=== PATIENT | female | born 1955 | race Caucasian/White ===

== ENCOUNTER 2019-04-04 06:55 | Outpatient (CLI) | payer BC, SELFPAY ==
--- NOTE | 2019-04-04 07:56 | ECG_ITS ---
NAME OF STUDY: LEXISCAN SESTAMIBI STRESS TEST INDICATION: Chest Pain, NOTE: Please note that this is the electrocardiogram portion of the Lexiscan/Sestamibi stress test. The perfusion scan will be documented separately. DATA: Baseline heart rate was 76 beats per minute. Baseline blood pressure was 145/76 millimeters of mercury. Target heart rate was 155. Maximum heart rate achieved was 116. which was 74% of the predicted target heart rate. Maximum blood pressure was 180/82 millimeters of mercury. The reason for ending the test was completion of the protocol. The patient did not experience any symptoms. ELECTROCARDIOGRAM: BASELINE: Sinus rhythm. Normal axis. Otherwise, no ST-T changes suggestive of ischemia noted. No arrhythmia noted. EXERCISE: After Lexiscan injection, no ST-T changes suggestive of ischemic noted. No arrhythmia noted. CONCLUSION: Please note due to baseline abnormality of the EKG specificity and sensitivity of the EKG portion of LexiScan MIBI stress test will be low 1. EKG not suggestive of ischemia 2. Lexiscan injection unremarkable. 3. Perfusion scan will be documented separately. Electronically Signed On 04-04-2019 11:37:21 PROJECT COORDINATOR by Althea Staples M.D. [email or web address]
[2019-04-04 07:57] VITALS: BMI 37.5
--- NOTE | 2019-04-04 07:57 | NMCV_ITS ---
NM sher perf SPECT r/s* [id number] Meghan Renteria Age: 64 Gender: F : 1955 Exam Date: 04/04/2019 07:57 Ordering Phys: JEFF JAMES Technologist: RANDOLPH Nichols Exam Location: [facility] Indications: Chest pain STRESS TEST Please see separate stress test report in [facility] for full findings IMAGE PROTOCOL Rest/Stress 1 Lexiscan Day Radiopharmaceutical Dose (mCi) Administration Site Administered by Rest: Tc-99m 10.8 IV RANDOLPH Nichols Sestamibi Stress:Tc-99m 32.6 IV RANDOLPH Nichols Sestamibi Rest: 04-Apr-2019 60 Discovery 630 Stress: 04-Apr-2019 45 Discovery 630 0.4mg Lexiscan. Images obtained in supine and prone position. SPECT RESULTS Technical Quality: Good Raw Data Analysis: Breast attenuation Image Corrections: No attenuation or motion correction applied Summed Stress Score: 0 Summed Rest Score: 2 Summed Difference Score: 0 PERFUSION FINDINGS SPECT images demonstrate homogeneous tracer distribution throughout the myocardium. FUNCTIONAL RESULTS (calculated via Gated SPECT) Stress Image LV EF (%): 90 Stress EDV (mL):48 TID: 0.78 Stress ESV (mL):5 Rest Image LV EF (%): 90 FUNCTIONAL FINDINGS: Left ventricular systolic function is hyperdynamic. IMPRESSIONS Myocardial perfusion imaging is normal and low probability for obstructive coronary artery disease. EKG segment will be documented separately. Althea Staples MD (Electronically Signed) Final Date: 04 April 2019 16:49 S
[2019-04-04] MEDS: regadenoson 0.4 Mg/5 ml Syringe IVP (09:23)
[2019-04-04 09:24] VITALS: BP 170/74; PULSE 99
== END 2019-04-04 06:56 | disposition home or self-care (01) ==
LOC: CDL 06:58
PROVIDERS: Family Provider Nurse Practitioner Family; PCP Nurse Practitioner Family; Visit Provider Nurse Practitioner Family
DX: R06.09 Other forms of dyspnea (principal); R07.89 Other chest pain; Z82.49 Family history of ischemic heart disease and other diseases of the circulatory system
CPT/HCPCS: 78452; 93017; A9500; J2785

== ENCOUNTER 2020-06-22 11:04 | Outpatient (CLI) | payer BC, SELFPAY ==
--- NOTE | 2020-06-22 11:14 | MM_ITS ---
WS: [id number] SCREENING DIGITAL MAMMOGRAM WITH CAD HISTORY: SCREENING COMPARISON: 08/30/2007 Bilateral CC and MLO views submitted. Computer aided detection analyzed. Breast composition: There are scattered areas of fibroglandular density. No suspicious masses, microc alcifications or architectural distortion. Benign calcifications in each breast MM/[place] [id number] IMPRESSION: BI-RADS: 2-Benign FOLLOW UP: 1 Year Follow-up
== END 2020-06-22 11:05 | disposition home or self-care (01) ==
LOC: RADSHAW 11:08
PROVIDERS: PCP Nurse Practitioner Family; Visit Provider Nurse Practitioner Family
DX: Z12.31 Encounter for screening mammogram for malignant neoplasm of breast (principal)
CPT/HCPCS: 77067

== ENCOUNTER 2020-11-11 11:20 | Outpatient (CLI) | payer BC, SELFPAY ==
--- NOTE | 2020-11-11 11:25 | XR_ITS ---
WS: [id number] HIP WITH PELVIS RIGHT TECHNIQUE: 3 views of the right hip with pelvis CLINICAL INFORMATION: HIP PAIN,RIGHT COMPARISON: None. FINDINGS: Mild osteoarthritis right hip. No acute fractures. Normal right pubic rami. XR/XR hip RT 2-3V wo/w pel* [id number] IMPRESSION: Mild degenerative arthritis right hip. Tonnis classification: grade 1: sclerosis of femoral head and acetabulum or sli ght joint space narrowing or slight lippig at joint margins
== END 2020-11-11 11:21 | disposition home or self-care (01) ==
PROVIDERS: PCP Nurse Practitioner Family; Visit Provider Nurse Practitioner Family
DX: M16.11 Unilateral primary osteoarthritis, right hip (principal)
CPT/HCPCS: 73502

== ENCOUNTER 2021-03-18 19:09 | Emergency (ER) | payer MEDICARE, SELFPAY ==
[2021-03-18 19:21] VITALS: BP 153/74; PULSE 99; RESP 16; TEMP 36.4; O2SAT 97; BMI 37.5
--- NOTE | 2021-03-18 19:27 | XRR_ITS ---
PROCEDURE INFORMATION: Exam: XR Right Knee Exam date and time: 03/18/2021 7:27 PM Age: 66 years old Clinical indication: Pain; Knee; Right; Additional info: Injury TECHNIQUE: Imaging protocol: XR Right knee. Views: 3 views. Total images: 3 COMPARISON: No relevant prior studies available. FINDINGS: Bones/joints: No visible fracture, subluxation, or dislocation. No radiographically visible joint effusion. Soft tissues: Unremarkable. XR/XR knee RT 3V* [id number] IMPRESSION: Nonacute.
--- NOTE | 2021-03-18 21:58 | W.ED.FALL ---
HPI - Fall General: Chief Complaint: Fall Stated Complaint: fall Time Seen by Provider: 03/18/21 21:54 History of Present Illness: HPI Narrative: 66-year-old female reports that she was going into the bathroom and her knee locked up on her causing her to start to fall in which she caught her self and then sat down on the toilet. Since then patient has had pain and discomfort to her right knee. Patient reports difficulty bearing weight to the knee. She is able to move the knee while sitting is just when she bears weight. Patient appears nontoxic. Patient appears in no pain at rest. Review of Systems Musc: Reports: joint pain (Right knee injury) [facility], [facility] ED PFSH: Social History (Updated 04/04/19 @ 07:55 by Nicole Almanza RN) Smoking and tobacco status: current every day smoker Physical Exam Const: NUTRITIONAL APPEARANCE: obese HENMT: COMMON NORMALS: atraumatic HEAD & SCALP: atraumatic Neck/C-Spine: COMMON NORMALS: full ROM Resp: COMMON NORMALS: normal respiratory effort and clear to auscultation bilaterally AUSCULTATION: clear to auscultation bilaterally Cardio: COMMON NORMALS: regular rate and regular rhythm RATE: regular rate RHYTHM: regular rhythm Extremity: RIGHT LOWER EXTREMITY: Yes knee joint Right knee: Yes inspection (Normal), Yes palpation (Joint line tenderness) and Yes ROM Neuro: GAIT: Yes Antalgic gait present Psych: COMMON NORMALS: cooperative Skin: COMMON NORMALS: no rashes or lesions noted GENERAL SKIN EXAM: no rashes or lesions noted Course Vital Signs: Vital signs: Vital Signs Temperature 97.6 F 03/18/21 19:21 Pulse Rate 99 03/18/21 19:21 Respiratory Rate 16 03/18/21 19:21 Blood Pressure 153/74 03/18/21 19:21 Pulse Oximetry 97 03/18/21 19:21 MDM - Fall MDM Narrative: Medical decision making narrative: 66-year-old female comes in today with complaints of right knee pain. Patient states that she had injury to her knee years ago when she fell off a ladder. Patient usually does not have problems with her knee. On exam there is joint line tenderness to the knee, no redness or heat, no significant swelling. Differential diagnosis includes meniscal injury, sprain, osteoarthritis. X-ray shows some degenerative joint disease but no acute fractures. Reviewed exam with patient recommended treatment for knee injury/sprain with limiting weight and using acetaminophen and ibuprofen for pain. Patient was given a total of 6 tablets of hydrocodone 06/29/2024 for breakthrough severe pain. Recommend follow-up with primary care for further instruction or referral as needed. Patient reported understanding and agreed to plan. Discharge Plan Discharge Patient Disposition: Home Clinical Impression: Knee injury Qualifiers: Encounter type: initial encounter Laterality: right Qualified Code(s): S89.91XA - Unspecified injury of right lower leg, initial encounter Degenerative joint disease of knee, right Qualifiers: Osteoarthritis type: unspecified Qualified Code(s): M17.11 - Unilateral primary osteoarthritis, right knee Condition: Stable Prescriptions: New hydrocodone-acetaminophen 5-325 mg tablet 1 tab PO Q8H PRN (Reason: pain (scale score 7-10)) Qty: 6 RF: 0 Discharge Orders: Discharge ED (Routine); Ordered 03/18/21 Ordered By: Prashant Romero Referrals: Marco Antonio Holder NP [Primary Care Provider] - Discharge Diet: Usual diet Discharge Activity: Increase activity as tolerated Patient Instructions: Knee Pain (ED), Opioid Safety Activity Restrictions/Additional Instructions: Use acetaminophen or ibuprofen to help control pain. Use a walker to get around at home. Follow-up with primary care for further instruction. Return to ER for new concerns. Use hydrocodone for breakthrough pain. Coding Level of Care Code ED Biomedical Equipment Tech for Emelina Alaniz
== END 2021-03-18 22:18 | disposition home or self-care (01) ==
PROVIDERS: Emergency Provider Nurse Practitioner Family; PCP Nurse Practitioner Family
DX: M17.11 Unilateral primary osteoarthritis, right knee (principal); S89.91XA Unspecified injury of right lower leg, initial encounter; F17.210 Nicotine dependence, cigarettes, uncomplicated; W18.40XA Slipping, tripping and stumbling without falling, unspecified, initial encounter
CPT/HCPCS: 73562; 99282

== ENCOUNTER 2021-07-27 10:36 | Outpatient (CLI) | payer MEDICARE, SELFPAY ==
--- NOTE | 2021-07-27 11:00 | MM_ITS ---
WS: [id number] Bilateral screening 3D tomosynthesis digital mammogram, 07/27/2021 Clinical Data: SCREENING Comparison: 06/22/2020, 08/30/2007, 08/03/2006. Findings: The breast parenchymal pattern shows fibroglandular tissue No spiculated masses or clustered calcific ations are seen. There are no secondary signs of carcinoma. MM/[place] [id number] Impression: 1. Negative bilateral mammogram unchanged. 2. Recommend annual screening mammograms. BIRADS: 1-Negative FOLLOW UP: 1 Year Follow-up The CAD quality checker was used.
== END 2021-07-27 10:37 | disposition home or self-care (01) ==
LOC: RAD 10:41
PROVIDERS: PCP Nurse Practitioner Family; Visit Provider Nurse Practitioner Family
DX: Z12.31 Encounter for screening mammogram for malignant neoplasm of breast (principal)
CPT/HCPCS: 77063; 77067

== ENCOUNTER 2021-08-09 09:55 | Outpatient (CLI) | payer MEDICARE, SELFPAY ==
--- NOTE | 2021-08-09 10:07 | XRR_ITS ---
PROCEDURE INFORMATION: Exam: XR Chest Exam date and time: 08/09/2021 10:15 AM Age: 66 years old Clinical indication: Cough; Prior surgery; Surgery type: Gb, hysto; Additional info: Nocturnal cough x 2 months TECHNIQUE: Imaging protocol: XR of the chest. Views: 2 views. Total images: 3 COMPARISON: CR Chest 2 views* [id number] 01/12/2018 1:05 AM FINDINGS: Lungs: Click lung granuloma Pleural spaces: Unremarkable. No pleural effusion. No pneumothorax. Heart/Mediastinum: Unremarkable. No cardiomegaly. Vasculature: Atherosclerosis is evident. Bones/joints: Unremarkable. Organs: Surgical clips are present in the right upper quadrant which are suggestive of prior cholecystectomy. XR/XR chest 2V* [id number] IMPRESSION: No acute cardiopulmonary process.
== END 2021-08-09 09:56 | disposition home or self-care (01) ==
LOC: RAD 09:57
PROVIDERS: PCP Nurse Practitioner Family; Visit Provider Nurse Practitioner Family
DX: R05.8 Other specified cough (principal)
CPT/HCPCS: 71046

== ENCOUNTER 2022-08-23 14:44 | Outpatient (CLI) | payer MEDICARE, SELFPAY ==
--- NOTE | 2022-08-23 | XR_ITS ---
WS: [id number] SCREENING DEXA SCAN Cureatr CLINICAL INFORMATION: OSTEOPOROSIS SCREENING COMPARISON: None. FINDINGS: LEFT forearm bone mineral density measures 0.845. This corresponds to a T score score of -0.4 and Z s core of 1.3. Left femoral neck bone mineral density measures 1.062 g/cm2. This corresponds to a T score of 0.4 and Z score of 1.2. Right femoral neck bone mineral density measures 1.085 g/cm2. This corresponds to a T score 0.6of and Z score of 1.4. Mean femoral neck bone mineral density measures 1.073 g/cm2. This corresponds to a T score of 0.5 and Z score of 1.3. XR/XR DEXA axial skeleton* [id number] IMPRESSION: Normal bone mineralization. Patient's FRAX calculated 10 year probability for major osteoporotic fracture i s 7.2 % and osteoporotic hip fracture is 0.9%.
--- NOTE | 2022-08-23 14:53 | MM_ITS ---
WS: [id number] VIEWS: MLO and CC views both breasts. 3D digital tomosynthesis is also included in this exam. Comparison made with prior exam of 08/03/2006, 08/30/2007, 06/22/2020, 07/27/2021.. Findings: There was no sign of mass, architectural distortion or suspicious calcification in either breast. Th ere are areas of scattered fibroglandular density MM/[place] [id number] Impression: BI-RADS: 2-Benign finding. FOLLOW-UP: 1 Year Follow-up This mammogram was also analyzed by the Computer Aided Detection System R2 Imag e Strong Nitric Operator.
== END 2022-08-23 14:45 | disposition home or self-care (01) ==
PROVIDERS: PCP Nurse Practitioner Family; Visit Provider Family Medicine
DX: Z78.0 Asymptomatic menopausal state (principal)
CPT/HCPCS: 77063; 77067; 77080

== ENCOUNTER 2023-01-07 10:19 | Emergency (ER) | payer MEDICARE, SELFPAY ==
[2023-01-07 10:21] VITALS: BP 171/110; PULSE 86; RESP 16; TEMP 36.7; O2SAT 95; BMI 36.9
--- NOTE | 2023-01-07 11:19 | CTR_ITS ---
PROCEDURE INFORMATION: Exam: CT Cervical Spine Without Contrast Exam date and time: 01/07/2023 12:06 PM Age: 67 years old Clinical indication: Injury or trauma; Fall; Blunt trauma; Additional info: Fall/injury TECHNIQUE: Imaging protocol: Computed tomography of the cervical spine without contrast. Axial, coronal and sagittal reformatted images were created and reviewed. Radiation optimization: All CT scans at this facility use at least one of these dose optimization techniques: automated exposure control; mA and/or kV adjustment per patient size (includes targeted exams where dose is matched to clinical indication); or iterative reconstruction. REPORTING DATA: Count of CT and Cardiac NM exams in prior 12 months: This patient has received 0 known CTs and 0 known cardiac nuclear medicine studies in the 12 months prior to the current study. COMPARISON: CT cervical spin wo con* [id number] 01/12/2018 1:18 AM RADIATION DOSE METRICS: Total DLP (mGy-cm): 597 FINDINGS: Bones/joints: Osteopenia. Straightening of the normal cervical lordosis. No CT evidence of acute fracture, dislocation or subluxation. Minimal anterolisthesis of C3 on C4 and retrolisthesis of C4 on C5. Alignment otherwise anatomic. Vertebral body heights maintained. Multilevel degenerative changes, characterized by disc space narrowing, osteophytosis and uncovertebral and facet joint hypertrophy. Multilevel spinal canal and neural foraminal stenosis. Lungs: Grossly unremarkable. Soft tissues: Grossly unremarkable. CT/CT cervical spin wo con* [id number]: 1[address] No CT evidence of acute cervical spine traumatic injury. 2. Additional findings, as above.
--- NOTE | 2023-01-07 11:19 | CTR_ITS ---
PROCEDURE INFORMATION: Exam: CT Head Without Contrast Exam date and time: 01/07/2023 12:06 PM Age: 67 years old Clinical indication: Injury or trauma; Fall; Blunt trauma (contusions or hematomas); Additional info: Fall/injury TECHNIQUE: Imaging protocol: Computed tomography of the head without contrast. Axial, coronal and sagittal reformatted images were created and reviewed. Radiation optimization: All CT scans at this facility use at least one of these dose optimization techniques: automated exposure control; mA and/or kV adjustment per patient size (includes targeted exams where dose is matched to clinical indication); or iterative reconstruction. REPORTING DATA: Count of CT and Cardiac NM exams in prior 12 months: This patient has received 0 known CTs and 0 known cardiac nuclear medicine studies in the 12 months prior to the current study. COMPARISON: CT cervical spin wo con* [id number] 01/12/2018 1:18 AM RADIATION DOSE METRICS: Total DLP (mGy-cm): 933.3 FINDINGS: Brain: Patchy areas of hypoattenuation in the periventricular and subcortical white matter, consistent with chronic small vessel ischemic disease. No CT evidence of acute intracranial hemorrhage or acute territorial infarction. No significant mass effect or midline shift. Basal cisterns patent. Cerebral ventricles: Prominence of the cortical sulci, cisterns and ventricular system, consistent with cerebral and cerebellar volume loss. Paranasal sinuses: Moderate polypoid left maxillary sinus mucosal thickening. No air-fluid levels. Mastoid air cells: Minimal opacification of the right mastoid air cells. Bones/joints: No acute osseous abnormality. Soft tissues: Grossly unremarkable. Vasculature: Calcific atherosclerotic disease in the cavernous internal carotid arteries, as well as the vertebro-basilar system. CT/CT head wo con* [id number]PRESSION: 1. No CT evidence of acute intracranial pathology. 2. Additional findings, as above.
--- NOTE | 2023-01-07 13:49 | ED_ITS ---
HPI - Fall General: Chief Complaint: Fall Stated Complaint: HEAD AND NECK PAIN S/P FALL Time Seen by Provider: 01/07/23 10:50 History of Present Illness: This patient is a 67-year-old white female who presents to the emergency department for evaluation of injuries after a fall. Patient was out at a yard sale with family members and she tripped over a railroad tie and fell backwards and struck her head and neck on the railroad tie. She did have a brief loss of consciousness according to family members. She has been complaining of dizziness since the injury. She was brought in by EMS. She has not had any nausea or vomiting. She does complain of a mild headache. Past medical history includes hypertension. She is not taking any blood thinners. Review of Systems General: Reports: 10 or more systems reviewed and unremarkable except in HPI and below PFSH ED PFSH: Social History (Updated 04/04/19 @ 07:55 by Nicole Gardner RN) Smoking and tobacco/nicotine status: current every day tobacco/nicotine user Physical Exam Const: COMMON NORMALS: no acute distress, patient oriented x3 and no limitations GENERAL APPEARANCE: cooperative and comfortable HENMT: COMMON NORMALS: normocephalic, atraumatic, Normal nasal mucous membranes and turbinates present, moist oral mucous membranes and oropharynx normal HEAD & SCALP: normal to inspection, normocephalic and atraumatic FACE & SINUS: normal facial exam NOSE: Normal nasal mucous membranes and turbinates present Eye: COMMON NORMALS: Equal, round and reactive pupils present, EOMs intact bilaterally and conjunctivae normal GENERAL EYE: appearance normal, both eyes and all related structures CONJUNCTIVA: Yes conjunctivae normal PUPIL: Yes Equal, round and reactive pupils present Neck/C-Spine: OTHER: Patient was in a soft collar, paramedics used a rolled up sheet. I did not initially examine her neck. Following the CT scan which was normal she does have some paraspinal C-spine tenderness bilaterally. No bony tenderness. Chest: COMMONS NORMALS: normal inspection of the chest Resp: COMMON NORMALS: normal respiratory effort and clear to auscultation bilaterally AUSCULTATION: clear to auscultation bilaterally Cardio: COMMON NORMALS: regular rate, regular rhythm, No gallops present (Cardio), No murmurs present (Cardio) and No rub (Cardio) RATE: regular rate RHYTHM: regular rhythm GI: COMMON NORMALS: Normal to inspection, nondistended, normoactive bowel sounds present, Soft to palpation and non-tender AUSCULTATION: Yes normoactive bowel sounds PALPATION: Yes Soft to palpation : COMMON NORMALS: Yes no CVA tenderness BLADDER/KIDNEY EXAM: Yes no CVA tenderness Back/Pelvis: COMMON NORMALS: no CVA tenderness and thoracic and lumbar spine normal to inspection Extremity: COMMON NORMALS: normal to inspection Neuro: COMMON NORMALS: patient oriented x3 and CN's II-XII intact bilaterally Psych: COMMON NORMALS: mental status grossly normal, Normal thought process present and cooperative THOUGHT PROCESS: Normal thought process present Skin: COMMON NORMALS: no rashes or lesions noted, turgor normal and no jaundice GENERAL SKIN EXAM: no rashes or lesions noted and turgor normal Course Vital Signs: Vital signs: Vital Signs Temperature 98.0 F 01/07/23 10:21 Pulse Rate 86 01/07/23 10:21 Respiratory Rate 16 01/07/23 10:21 Blood Pressure 171/110 01/07/23 10:21 Pulse Oximetry 95 01/07/23 10:21 Oxygen Delivery Me thod Room Air 01/07/23 10:21 MDM - Fall Medical Decision Making Head CT and cervical spine CT read by the radiologist as normal. Patient initially did not want any pain medication. Just prior to discharge she did request something for her headache but did not want an injection. We did give her 1 tablet of hydrocodone/acetaminophen. She was discharged in stable condi tion with prescription for baclofen. She states she will be okay with taking Tylenol at home. Recommended she follow-up with her primary care physician as needed. She was discharged with head injury instructions. Lab Data Radiology Impressions Cervical Spine CT 01/07/23 11:[address]: [address] evidence of acute cervical spine traumatic injury. 2. Additional findings, as above. Head CT 01/07/23 11:[address]: 1[address] evidence of acute intracranial pathology. 2. Additional findings, as above. All radiology interpretation(s) finalized by discharge Discharge Plan Discharge Patient Disposition: Home Clinical Impression: Head injury, Acute cervical myofascial strain Condition: Stable Prescriptions: New baclofen 5 mg tablet 5 mg PO TID PRN (Reason: muscle spasm) Qty: 30 0RF No Action lovastatin 40 mg tablet 40 mg PO QPM Stool Softener 50 mg Capsule 50 mg PO DAILY amlodipine 5 mg tablet 5 mg PO DAILY lisinopril-hydrochlorothiazide 20-25 mg tablet 1 tab PO DAILY Discharge Orders: Discharge ED (Routine); Ordered 01/07/23 Ordered By: Tyrone Trotter Patient Instructions: Head Injury (DC), Cervical Strain, Pain Management Coding Level of Care Code ED Riveting Machine Operator Automatic for Emelina Alaniz
== END 2023-01-07 14:05 | disposition home or self-care (01) ==
PROVIDERS: Emergency Provider Emergency Medicine
DX: S16.1XXA Strain of muscle, fascia and tendon at neck level, initial encounter (principal); Z72.0 Tobacco use; S06.9X1A Unspecified intracranial injury with loss of consciousness of 30 minutes or less, initial encounter; W18.09XA Striking against other object with subsequent fall, initial encounter
CPT/HCPCS: 70450; 72125; 99284

== ENCOUNTER 2023-09-27 08:32 | Outpatient (CLI) | payer MEDICARE, SELFPAY ==
--- NOTE | 2023-09-27 08:34 | MM_ITS ---
WS: [id number] BILATERAL SCREENING DIGITAL TOMOSYNTHESIS MAMMOGRAM WITH CAD HISTORY: SCREENING COMPARISON: 08/23/2022, 07/27/2021 and 06/22/2020 Bilateral CC and MLO views with tomosynthesis and synthetic mammography submitted. Computer aided det ection analyzed. Breast composition: There are scattered areas of fibroglandular density. No suspicious masses, microc alcifications or architectural distortion. Focal asymmetry in the anterior RIGHT breast has been stab le on several prior years. Benign calcifications in each breast. MM/[place] [id number] IMPRESSION: BI-RADS: 2-Benign FOLLOW UP: 1 Year Follow-up
== END 2023-09-27 08:33 | disposition home or self-care (01) ==
LOC: RAD 08:33
PROVIDERS: PCP Family Medicine; Visit Provider Family Medicine
DX: Z12.31 Encounter for screening mammogram for malignant neoplasm of breast (principal)
CPT/HCPCS: 77063; 77067

== ENCOUNTER 2023-11-10 13:42 | Outpatient (CLI) | payer MEDICARE, SELFPAY ==
--- NOTE | 2023-11-10 13:47 | USCV_ITS ---
Meghan Renteria Age: 68 Gender: F : 1955 Exam Date: 11/10/2023 14:16 Ordering Phys: Leo Shipley MD Technologist: [employer] [place] [facility] [place]ication: PROCEDURES: Venous duplex imaging was performed in only the left lower extremity. On the left side, the common femoral, superficial femoral, profunda femoral, popliteal, posterior tibial, greater saphenous veins, and the peroneal trunk were identified and interrogated in the standard fashion. These veins were found to be easily compressible with spontaneous blood flow. No evidence of insufficiency or thrombus noted. FINDINGS: No Dvt CONCLUSIONS No evidence of left lower extremity DVT. Kareem Winston MD (Electronically Signed) Final Date: 10 November 2023 16:01 S
== END 2023-11-10 13:43 | disposition home or self-care (01) ==
LOC: RAD 13:44
PROVIDERS: PCP Family Medicine; Visit Provider Family Medicine
DX: M79.662 Pain in left lower leg (principal)
CPT/HCPCS: 93971

== ENCOUNTER 2024-07-08 09:46 | Outpatient (CLI) | payer MEDICARE, SELFPAY ==
--- NOTE | 2024-07-08 09:56 | CT_ITS ---
WS: [id number] LDCT LUNG CANCER SCREENING HISTORY: NICOTINE DEPENDENCE,CIGARETTES TECHNIQUE: Axial imaging performed from the apices to 1 cm below the costophrenic angles. Coronal and sagittal reformats are submitted with axial MIP series. All CT scans at [facility] use at least one of these dose optimization techniques: automated exposure control; mA and/or kV adjustment per patient size (includes targeted exams where dose is matched to clinical indication); or iterative reconstruction. DLP: 88.52 mGy.cm DIvol: Mean CTDIvol: 2.50 (mGy) COMPARISON: None available. Diagnostic quality: Satisfactory Lungs: Benign calcified granuloma LEFT upper lobe. No pulmonary mass or nodule. No endobronchial lesions or groundglass attenuation. Heart: Normal size heart with no pericardial effusion.. Other findings: Atherosclerosis aorta. No aneurysm. Pulmonary artery slightly dilated. Coronary artery calcifications. No adrenal mass. Prior cholecystectomy. Advanced thoracic spondylitic changes. CT/CT lung screening [id number] IMPRESSION: LUNG-RADS: 2-Benign Appearance or Behavior FOLLOW UP: 12 Month: Continue annual screening with LDCT OTHER FINDINGS (S MODIFIER): None.
== END 2024-07-08 09:47 | disposition home or self-care (01) ==
PROVIDERS: PCP Family Medicine; Visit Provider Family Medicine
DX: Z12.2 Encounter for screening for malignant neoplasm of respiratory organs (principal); F17.210 Nicotine dependence, cigarettes, uncomplicated; J84.10 Pulmonary fibrosis, unspecified; I70.0 Atherosclerosis of aorta; I25.10 Atherosclerotic heart disease of native coronary artery without angina pectoris; Z90.49 Acquired absence of other specified parts of digestive tract; M47.894 Other spondylosis, thoracic region
CPT/HCPCS: 71271

== ENCOUNTER 2024-09-30 08:57 | Outpatient (CLI) | payer MEDICARE, SELFPAY ==
--- NOTE | 2024-09-30 09:02 | MM_ITS ---
WS: [id number] BILATERAL SCREENING DIGITAL TOMOSYNTHESIS MAMMOGRAM WITH CAD HISTORY: SCREENING COMPARISON: 09/27/2023, 08/23/2022 Bilateral CC and MLO views with tomosynthesis and synthetic mammography submitted. Computer aided detection analyzed. Breast composition: There are scattered areas of fibroglandular density. No suspicious masses, microcalcifications or architectural distortion. Scattered benign calcifications in each breast. Bilateral arterial calcifications. MM/MM scr tomosynthesis [id number] IMPRESSION: BI-RADS: 2 - Benign. FOLLOW UP: 1 Year Follow-up
== END 2024-09-30 08:58 | disposition home or self-care (01) ==
LOC: RAD 08:58
PROVIDERS: PCP Family Medicine; Visit Provider Family Medicine
DX: Z12.31 Encounter for screening mammogram for malignant neoplasm of breast (principal); R92.323 Mammographic fibroglandular density, bilateral breasts; R92.1 Mammographic calcification found on diagnostic imaging of breast
CPT/HCPCS: 77063; 77067